=== PATIENT | female | born 1960 | race Caucasian/White ===

== ENCOUNTER 2017-12-12 19:37 | Emergency (ER) | payer MEDICAID, MEDICARE, OTHER ==
[~2017-12-12] VITALS: Ht 167.6 cm; Wt 47.2 kg
[~2017-12-12 19:37] MED LIST: ALBU8.5H6 IH; ASPI-630 PO; ASPI325T8 PO; DICL100G18 TP; HYDR-2762 PO; HYDR12.58 PO; LIDO700A27 TP; LISI10TA2 PO; LISI1TAB3 PO; NICO1PAT5 TD; OXYC10TA PO; PANT40TA3 PO
[2017-12-12] MEDS ORDERED: IV RINGERS SOLUTION,LACTATED 1,000 ML IV SCH (20:00)
[2017-12-12] MEDS ORDERED: cloNIDine TTS-2 1 PATCH PATCH TD ONE (20:15)
--- NOTE | 2017-12-12 20:22 | ED.ADGEN ---
Past History Past Medical History: CVA, Hypertension, Seizure, Stroke, Other Past Surgical History: No Surgical History Smoking: Cigarettes, Less than 1pk/day Alcohol Use: Occasionally Drug Use: Marijuana, Methamphetamine Adult General Chief Complaint Chief Complaint "... I was watching MASH on TV and I got this really severe headache.. right here ( points to Rt frontal- sinus)...I was nauseated... and I freaked.. I through I was having another big stroke... My head ache is gone now... just a little nausea now... I am not having any new changes.. I just freaked because of my past stroke...in 2013.. " HPI HPI Patient is a 57 year old female who presents with above hx and complaints of accelerated HTN, nausea and transient headache. Pt. does continue to smoke. Has persistent Lt side deficits arm, leg and with speech from prior CVA in 2013. No new deficits noted by pt. or . Pt. denies any trauma or travel or ill contacts.. Has been taking BP meds., but presents with elevated BP. No hx of bad food. No headache currently. Patient is states she has taken her blood pressure meds today and taken her daily aspirin of 81 mg. Patient states she took extra dose of her hypertensive meds this afternoon. Pt. normally follows with Dr. Patton. Review of Systems Review of Systems Constitutional: Denies fever or chills [] Eyes: Denies change in visual acuity, redness, or eye pain [] HENT: Denies nasal congestion or sore throat [] Respiratory: Denies cough or shortness of breath [] Cardiovascular: No additional information not addressed in HPI [] GI: Denies abdominal pain,, vomiting, bloody stools or diarrhea []Transient nausea. : Denies dysuria or hematuria [] Musculoskeletal: Denies back pain or joint pain [] Integument: Denies rash or skin lesions [] Neurologic: Hx of headache,denies any new focal weakness or sensory changes [] Endocrine: Denies polyuria or polydipsia [] All other systems were reviewed and found to be within normal limits, except as documented in this note. Family History Family History HTN Current Medications Current Medications Current Medications Medications (Trade) Dose Ordered Sig/Ramiro Start Time Stop Time Status Last Admin Dose Admin Cephalexin HCl (Keflex) 500 mg 1X ONCE 12/12/17 21:30 12/12/17 21:31 DC 12/12/17 21:25 500 MG Clonidine HCl (Catapres Tts-2) 1 patch 1X ONCE 12/12/17 20:15 12/12/17 20:17 DC 12/12/17 20:16 1 PATCH Clonidine HCl (Catapres) 0.1 mg 1X ONCE 12/12/17 22:00 12/12/17 22:01 DC 12/12/17 22:00 0.1 MG Lactated Ringer's 1,000 ml @ 1,000 mls/hr Q1H 12/12/17 20:00 12/12/17 20:59 DC 12/12/17 20:00 1,000 MLS/HR Ondansetron HCl (Zofran) 8 mg 1X ONCE 12/12/17 20:30 12/12/17 20:33 DC 12/12/17 20:28 8 MG Allergies Allergies Allergies Coded Allergies Type Severity Reaction Last Updated Verified No Known Drug Allergies 07/30/13 No Physical Exam Physical Exam Constitutional: in acute emotional distress, non-toxic appearance. [] HENT: Normocephalic, atraumatic, bilateral external ears normal, oropharynx moist, no oral exudates, nose normal. Rt. frontal sinus tender to percussion,. Eyes: conjunctiva normal, no discharge. 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 Neck: Normal range of motion, no tenderness, supple, no stridor. [] Cardiovascular:Heart rate regular rhythm, no murmur [] Lungs & Thorax: Bilateral breath sounds equal at apex with scattered wheezes on auscultation [] Abdomen: Bowel sounds normal, soft, no tenderness, no masses, no pulsatile masses. Scar. Skin: Warm, dry, no erythema, no rash. [] Back: No tenderness, no CVA tenderness. [] Extremities: No tenderness, no cyanosis, no clubbing, ROM intact, no edema. Except Lt side motor deficits and contraction - all old sequela from prior stroke. No new deficits Neurologic: Alert and oriented X 3, normal motor function, normal sensory function, no focal deficits noted. [] Psychologic: Affect anxious, judgement normal, mood normal. [] Current Patient Data Vital Signs Vital Signs Date Time Temp Pulse Resp B/P (MAP) Pulse Ox O2 Delivery O2 Flow Rate FiO2 12/12/17 22:10 78 18 179/92 (121) 98 Room Air 12/12/17 19:50 97.7 Lab Results Laboratory Tests Test 12/12/17 20:05 12/12/17 20:49 White Blood Count 6.2 x10^3/uL (4.0-11.0) Red Blood Count 5.45 x10^6/uL (3.50-5.40) H Hemoglobin 16.0 g/dL (12.0-15.5) H Hematocrit 47.1 % (36.0-47.0) H Mean Corpuscular Volume 87 fL (79-100) Mean Corpuscular Hemoglobin 29 pg (25-35) Mean Corpuscular Hemoglobin Concent 34 g/dL (31-37) Red Cell Distribution Width 15.7 % (11.5-14.5) H Platelet Count 387 x10^3/uL (140-400) Neutrophils (%) (Auto) 65 % (31-73) Lymphocytes (%) (Auto) 20 % (24-48) L Monocytes (%) (Auto) 10 % (0-9) H Eosinophils (%) (Auto) 4 % (0-3) H Basophils (%) (Auto) 1 % (0-3) Neutrophils # (Auto) 4.0 x10^3uL (1.8-7.7) Lymphocytes # (Auto) 1.2 x10^3/uL (1.0-4.8) Monocytes # (Auto) 0.6 x10^3/uL (0.0-1.1) Eosinophils # (Auto) 0.3 x10^3/uL (0.0-0.7) Basophils # (Auto) 0.1 x10^3/uL (0.0-0.2) Erythrocyte Sedimentation Rate 3 (0-25) Prothrombin Time 11.2 SEC (9.4-11.4) Prothrombin Time INR 1.1 (0.9-1.1) PTT 28 SEC (23-33) Sodium Level 137 mmol/L (136-145) Potassium Level 3.3 mmol/L (3.5-5.1) L Chloride Level 100 mmol/L (98-107) Carbon Dioxide Level 31 mmol/L (21-32) Anion Gap 6 (6-14) Blood Urea Nitrogen 16 mg/dL (7-20) Creatinine 0.7 mg/dL (0.6-1.0) Estimated GFR (Cockcroft-Gault) 86.9 Glucose Level 87 mg/dL (70-99) Calcium Level 8.4 mg/dL (8.5-10.1) L Magnesium Level 2.2 mg/dL (1.8-2.4) Total Bilirubin 0.2 mg/dL (0.2-1.0) Direct Bilirubin 0.1 mg/dL (0.0-0.2) Aspartate Amino Transferase (AST) 13 U/L (15-37) L Alanine Aminotransferase (ALT) 21 U/L (14-59) Alkaline Phosphatase 85 U/L (46-116) Creatine Kinase 64 U/L (26-192) Creatine Kinase MB (Mass) 2.8 ng/mL (0.0-3.6) Creatine Kinase MB Relative Index 4.4 % (0-4) H Troponin I Quantitative < 0.017 ng/mL (0-0.055) CH-Akx-P-Type Natriuretic Peptide 204 pg/mL (0-124) H Total Protein 7.7 g/dL (6.4-8.2) Albumin 3.7 g/dL (3.4-5.0) Urine Collection Type Unknown Urine Color Yellow Urine Clarity Hazy Urine pH 7.5 Urine Specific Sargent 1.020 Urine Protein Neg (NEG-TRACE) Urine Glucose (UA) Neg mg/dL (NEG) Urine Ketones (Stick) Neg mg/dL (NEG) Urine Blood Neg (NEG) Urine Nitrite Neg (NEG) Urine Bilirubin Neg (NEG) Urine Urobilinogen Dipstick 0.2 mg/dL (0.2 mg/dL) Urine Leukocyte Esterase Small (NEG) Urine RBC 1-2 /HPF (0-2) Urine WBC 1-4 /HPF (0-4) Urine Squamous Epithelial Cells Mod /LPF Urine Amorphous Sediment Present /HPF Urine Bacteria 0 /HPF (0-FEW) Urine Opiates Screen Neg (NEG) Urine Methadone Screen Neg (NEG) Urine Barbiturates Neg (NEG) Urine Phencyclidine Screen Neg (NEG) Urine Amphetamine/Methamphetamine Neg (NEG) Urine Benzodiazepines Screen Neg (NEG) Urine Cocaine Screen Neg (NEG) Urine Cannabinoids Screen Neg (NEG) Urine Ethyl Alcohol Neg (NEG) EKG EKG My interpretation EKG shows a rhythm at 74 bpm. There is some right ventricle hypertrophic. Some nonspecific anterior septal changes. No findings acute STEMI of contralateral changes.[] Radiology/Procedures Radiology/Procedures My interpretation of CT of head shows no shift, mass, edema, bleed, or fracture. Has large encephalomalacia from previous stroke in 2013.[] No significant change in comparison to prior CT 01/15/2015. See formal report when available. I interpretation of chest x-ray shows no acute cardio pulmonary changes. Does have some mild chronic changes . In comparison to chest x-ray of 01/15/2015 no acute interval changes appreciated.. Course & Med Decision Making Course & Med Decision Making Pertinent Labs and Imaging studies reviewed. (See chart for details) Pt. demanded discharge before completion of labs. Will follow up with primary to review ED work up. Pt. Encouraged to stop smoking. Pt. to wear clonidine patch until see Primary for modification of her hypertensive meds. Pt. to return at any time for further evaluation. Pt. to push fruit juices and vitamin C drinks. Take Keflex 500 three times a day. Follow up urine cultures. [] Final Impression Final Impression 1. Transient headache 2. Accelerated hypertension 3. History of large Rt. 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 4. Tobacco Dependence Dragon Disclaimer Dragon Disclaimer This electronic medical record was generated, in whole or in part, using a voice recognition dictation system. TED YOUSSEF MD Dec 12, 2017 20:21
--- NOTE | 2017-12-12 20:27 | RAD ---
Examination: CT CODE STROKE HEAD WO History: severe headache right side of head, pressure behind right eye
hx stroke in past Comparison/Correlation: None Findings: Axial images of the head were obtained without contrast. Comparison is made to 01/15/2015 CT head without contrast. Atrophy is present. Right frontoparietal infarct with ex vacuo dilatation of the right lateral ventricle is evident. Old left pontine lacunar infarct is present. Old right clavicular infarct. No intracranial hemorrhage, midline shift, or mass effect. No depressed fracture. Impression: No intracranial hemorrhage or evidence of acute evolving infarct. Old infarcts are present. Consider further evaluation with MRI if able for more definitive assessment if clinically indicated. On 12/12/2017 at 8:23 PM, results reported to Dr. Fonseca of the emergency Department. Electronically signed by: Jimmie Cormier MD (12/12/2017 8:24 PM) [facility]
[2017-12-12 20:28] LABS: BASO # 0.1 x10^3/uL (0.0-0.2); BASO % 1 % (0-3); EOS # 0.3 x10^3/uL (0.0-0.7); EOS % 4 % (0-3); HEMATOCRIT 47.1 % (36.0-47.0); LYMPH # 1.2 x10^3/uL (1.0-4.8); LYMPH % 20 % (24-48); MEAN CORPUSCULAR HEMOGLOBIN 29 pg (25-35); MEAN CORPUSCULAR HGB CONC 34 g/dL (31-37); MEAN CORPUSCULAR VOLUME 87 fL (79-100); MONO # 0.6 x10^3/uL (0.0-1.1); MONO % 10 % (0-9); NEUT % 65 % (31-73); PLATELET COUNT 387 x10^3/uL (140-400); RED BLOOD COUNT 5.45 x10^6/uL (3.50-5.40); RED CELL DISTRIBUTION WIDTH 15.7 % (11.5-14.5); WHITE BLOOD COUNT 6.2 x10^3/uL (4.0-11.0)
[2017-12-12] MEDS ORDERED: ONDANSETRON PF 4 MG/2 ML VIAL. IV ONE (20:30)
--- NOTE | 2017-12-12 20:34 | EKG ---
[address] [address] Test Date: 2017-12-12 Test Time: 20:20:47 Pat Name: ISRAEL FRYE Department: Room: Gender: F Neonatologist: : [id number] Requested By: TED YOUSSEF Order Number: [id number] Reading MD: Measurements Intervals [place] Rate: 74 P: CT: QRS: 37 QRSD: 78 T: 79 QT: 374 QTc: 420 Interpretive Statements ATRIAL FLUTTER CONSIDER RIGHT VENTRICULAR HYPERTROPHY QRS(T) CONTOUR ABNORMALITY CONSIDER ANTEROSEPTAL MYOCARDIAL DAMAGE T ABNORMALITY IN HIGH LATERAL LEADS ABNORMAL ECG RI6.01 Unconfirmed report No previous ECG available for comparison
[2017-12-12 20:47] LABS: ALBUMIN 3.7 g/dL (3.4-5.0); CALCIUM 8.4 mg/dL (8.5-10.1); CREATININE 0.7 mg/dL (0.6-1.0); DIRECT BILIRUBIN 0.1 mg/dL (0.0-0.2); GFR 86.9; MAGNESIUM 2.2 mg/dL (1.8-2.4); POTASSIUM 3.3 mmol/L (3.5-5.1); TOTAL BILIRUBIN 0.2 mg/dL (0.2-1.0); TOTAL PROTEIN 7.7 g/dL (6.4-8.2)
[2017-12-12 21:06] LABS: BACTERIA,URINE 0 /HPF (0-FEW); BILIRUBIN,URINE NEG (NEG); CLARITY,URINE HAZY; COLOR,URINE YELLOW; GLUCOSE,URINE NEG (NEG); NITRITE,URINE NEG (NEG); UROBILINOGEN,URINE 0.2 mg/dL (0.2 mg/dL)
[2017-12-12 21:07] LABS: AMORPHOUS SEDIMENT,UR PRESENT /HPF; AMPHETAMINE/METHAMPHETAMINE NEG (NEG); BARBITURATES NEG (NEG); BENZODIAZEPINES NEG (NEG); CANNABINOIDS NEG (NEG); COCAINE NEG (NEG); METHADONE NEG (NEG); OPIATES NEG (NEG); PHENCYCLIDINE NEG (NEG); SQUAMOUS EPITHELIAL CELL,UR MOD /LPF
[2017-12-12] MEDS ORDERED: cloNIDine HCL 0.1 MG TABLET PO ONE ×2 (21:15→22:00)
[2017-12-12] MEDS ORDERED: CEPH-264 PO (21:27)
[2017-12-12] MEDS ORDERED: CEPHALEXIN 250 MG CAPSULE PO ONE (21:30)
[2017-12-12 21:33] LABS: SEDIMENTATION RATE 3 (0-25)
[2017-12-12 22:10] VITALS: BP 179/92
--- NOTE | 2017-12-13 00:03 | RAD ---
Examination: PORTABLE CHEST 1V History: WEAKNESS, HEADACHE, HX STROKE Comparison/Correlation: 01/15/2015 frontal view of the chest Findings: Portable frontal view chest was obtained. Heart size and pulmonary vasculature are normal. No infiltrate or pleural effusion. Old proximal left humeral neck fracture is present. Deformity of the left third rib posteriorly and medially is noted. Correlate with trauma history. No pneumothorax. Impression: No infiltrate. Electronically signed by: Jimmie Cormier MD (12/13/2017 12:00 AM) [facility]
== END 2017-12-12 22:13 | disposition home or self-care (01) ==
LOC: ER 19:37
DX: I10 Essential (primary) hypertension (principal); F17.210 Nicotine dependence, cigarettes, uncomplicated; Z86.73 Personal history of transient ischemic attack (TIA), and cerebral infarction without residual deficits
CPT/HCPCS: 36415; 70450; 71045; 80048; 80076; 80307; 81001; 82553; 83735; 83880; 84443; 84484; 85025; 85610; 85651; 85730; 87086; 93005; 96374; 99285; J2405; J7120; G0479